=== PATIENT | female | born 1955 | race Caucasian/White ===

== ENCOUNTER 2021-01-07 08:58 | Emergency (ER) | payer MEDICARE, OTHER ==
[~2021-01-07] VITALS: Ht 149.9 cm; Wt 76.4 kg
[~2021-01-07 08:58] MED LIST: CIPROFLOXACIN500 M1 PO; FLEXERIL; NORCO 5-325 TA1 EACH PO; VICODIN; XANAX 0.5 MG0.5 MG PO
[2021-01-07] MEDS ORDERED: BUPROPION XL300 MG PO (09:19)
[2021-01-07] MEDS ORDERED: PROTONIX40 M2 PO (09:19)
[2021-01-07] MEDS ORDERED: LEXAPRO20 MG PO (09:20)
[2021-01-07] MEDS ORDERED: DAILY VALUE1 EAC1 PO (09:20)
[2021-01-07] MEDS ORDERED: ARIMIDEX1 MG PO (09:20)
[2021-01-07] MEDS ORDERED: NORVASC5 MG PO (09:20)
[2021-01-07] MEDS ORDERED: VESICARE10 M1 PO (09:20)
[2021-01-07] MEDS ORDERED: CALCIUM + D3 E1 EACH PO (09:21)
[2021-01-07] MEDS ORDERED: VITAMIN C500 M1 PO (09:21)
[2021-01-07 10:03] LABS: HEMATOCRIT 42.9 % (37.0-47.0); HEMOGLOBIN 14.4 gm/dL (12.0-15.0); MCHC 33.5 g/dL (28.0-37.0); MCV 89.6 fL (80.0-100.0); MPV 6.5 fl. (7.2-11.1); RBC 4.79 mil/uL (4.20-5.00); RDW-CV 12.7 % (10.5-14.5); WBC 7.1 thou/uL (4.0-11.0)
[2021-01-07 10:15] LABS: CALCIUM 9.1 mg/dL (8.5-10.1); CREATININE 0.8 mg/dL (0.6-1.3); POTASSIUM 4.1 mmol/L (3.5-5.1)
[2021-01-07] MEDS ORDERED: AUGMENTIN 875-1 EACH PO (12:30)
[2021-01-07 12:48] VITALS: BP 139/71
== END 2021-01-07 12:49 | disposition home or self-care (01) ==
LOC: M.ERS 08:58
PROVIDERS: Emergency Medicine Emergency Medical Services
DX: M26.601 Right temporomandibular joint disorder, unspecified (principal); R68.84 Jaw pain; Z98.890 Other specified postprocedural states; Z90.710 Acquired absence of both cervix and uterus; Z90.49 Acquired absence of other specified parts of digestive tract; Z79.899 Other long term (current) drug therapy; Z88.2 Allergy status to sulfonamides; Z88.5 Allergy status to narcotic agent; Z88.6 Allergy status to analgesic agent